=== PATIENT | male | born 1945 | race Caucasian/White ===

== ENCOUNTER 2023-01-24 23:59 | Outpatient (BNV) | payer MEDICARE, SELFPAY | END 2023-01-25 23:59 | PROVIDERS: Visit Provider Internal Medicine | DX: I21.4 Non-ST elevation (NSTEMI) myocardial infarction (principal); I10 Essential (primary) hypertension; E78.5 Hyperlipidemia, unspecified; E11.9 Type 2 diabetes mellitus without complications | CPT/HCPCS: 99223 ==